=== PATIENT | female | born 1985 | race Hispanic/Latino ===

== ENCOUNTER 2017-11-14 09:07 | Emergency (ER) | payer OTHER | END 2017-11-14 10:05 | disposition home or self-care (01) | LOC: SCSER 09:07 | DX: J02.9 Acute pharyngitis, unspecified (principal); F84.0 Autistic disorder; H54.7 Unspecified visual loss; Z79.899 Other long term (current) drug therapy | CPT/HCPCS: 87081; 87430; 99283 ==

== ENCOUNTER 2018-11-30 18:57 | Emergency (ER) | payer OTHER | END 2018-11-30 19:24 | disposition home or self-care (01) | LOC: SCSER 18:57 | DX: J06.9 Acute upper respiratory infection, unspecified (principal); F84.0 Autistic disorder; Z79.899 Other long term (current) drug therapy | CPT/HCPCS: 99283 ==